=== PATIENT | male | born 1995 | race Caucasian/White ===

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

== ENCOUNTER 2017-01-23 09:53 | Emergency (ER) | payer OTHER ==
[~2017-01-23] VITALS: Ht 157.5 cm; Wt 83.0 kg
[~2017-01-23 09:53] MED LIST changes: +BACTDS PO; +CEPH-443 PO; +MUPI22OI2 TOP
[2017-01-23 09:58] VITALS: Ht 157.5 cm; Wt 83.0 kg
[2017-01-23] MEDS ORDERED: IBUPROFEN 600 MG TAB PO ONE (11:00)
[2017-01-23] MEDS ORDERED: LIDOCAINE 1% (MDV) 20 ML INJ SC ONE (11:00)
[2017-01-23] MEDS ORDERED: IBUP-1542 PO (11:39)
--- NOTE | 2017-01-23 11:41 | ERD ---
ER Documentation Chief Complaint Date/Time DATE: 01/23/17 TIME: 11:40 Chief Complaint rt big toe ingrown toe nail HPI This 89-year-old male presents with pain and redness in the lateral aspect of his right big toe ingrown toenails. He has a history of recurrent ingrown toenails is lasting a year ago. Denies fevers, history of trauma, bleeding or discharge ROS All systems reviewed and are negative except as per history of present illness. Medications Home Meds Active Scripts Ibuprofen* (Motrin*) 600 Mg Tab, 600 MG PO Q6, #15 TAB Prov:RACHELLE NEVES MD 01/23/17 Mupirocin* (Bactroban*) 2% -22 Gram Oint...g., 1 APPLIC TOP BID for 7 Days, EA Prov:ROXANNE ANTONIO PA-C 11/21/16 Sulfamethoxazole-Trimethoprim* (Bactrim* DS) 800-160 Mg Tab, 1 TAB PO BID for 7 Days, TAB Prov:ROXANNE ANTONIO PA-C 11/21/16 Cephalexin* (Keflex*) 500 Mg Capsule, 500 MG PO QID for 7 Days, CAP Prov:ROXANNE ANTONIO PA-C 11/21/16 Ibuprofen* (Motrin*) 600 Mg Tab, 600 MG PO Q6, #16 TAB Prov:RACHELLE NEVES MD 05/21/16 Ibuprofen* (Motrin*) 600 Mg Tab, 600 MG PO Q6, #14 TAB Prov:RACHELLE NEVES MD 07/07/15 Allergies Allergies: Coded Allergies: No Known Allergy (Unverified , 05/21/16) PMhx/Soc Medical and Surgical Hx: pt denies Medical Hx, pt denies Surgical Hx Hx Alcohol Use: No Hx Substance Use: No Hx Tobacco Use: No Smoking Status: Never smoker Physical Exam Vitals Vital Signs Date Time Temp Pulse Resp B/P Pulse Ox O2 Delivery O2 Flow Rate FiO2 01/23/17 09:58 98.2 89 18 122/76 98 Physical Exam Const: [] Alert, [id number] per Head: Atraumatic Eyes: Normal Conjunctiva ENT: Normal External Ears, Nose and Mouth. Neck: Full range of motion..~ No meningismus. Resp: Clear to auscultation bilaterally Cardio: Regular rate and rhythm, no murmurs Abd: Soft, non tender, non distended. Normal bowel sounds Skin: No petechiae or rashes Back: No midline or flank tenderness Ext: No cyanosis, or edema. On the right big toe there is some bilateral ingrown toenail some irritation without warmth, induration, bleeding or discharge is a deformities or bony tenderness to Neur: Awake and alert Psych: Normal Mood and Affect Results 24 hrs Current Medications Medications (Trade) Dose Ordered Sig/Prieto Route PRN Reason Start Time Stop Time Status Last Admin Dose Admin Ibuprofen (Motrin) 600 mg ONCE ONCE PO 01/23/17 11:00 01/23/17 11:01 DC 01/23/17 11:05 Lidocaine (Xylocaine 1% (Mdv) 20 ml) 20 ml ONCE ONCE SC 01/23/17 11:00 01/23/17 11:01 DC Procedures/[facility] Procedure note- Right big toe was prepped with Betadine. 4 cc of lidocaine was used to perform a digital block. Using clamps and scissors the ingrown portions of the nail removed bilaterally on the right big toenail. Patient tolerated procedure well and the wound was dressed. Patient will be discharged home instructions for ibuprofen instructions to return for worsening redness, fevers, new worsening symptoms. Signs and symptoms do not suggest osteomyelitis, foreign body, fracture, dislocation. Departure Diagnosis: Primary Impression: Ingrowing toenail of right foot Condition: Stable Patient Instructions: Ingrown Toenail, Excised Additional Instructions: Recheck for worsening redness, fevers, new or worsening symptoms. RACHELLE NEVES MD Jan 23, 2017 11:41
== END 2017-01-23 11:59 | disposition home or self-care (01) ==
LOC: FTE 09:53
DX: L60.0 Ingrowing nail (principal)
CPT/HCPCS: 11765; Z7502; Z7610

== ENCOUNTER 2018-09-28 15:53 | Emergency (ER) | END 2018-09-28 17:06 | disposition home or self-care (01) ==